=== PATIENT | female | born 1980 | race Caucasian/White ===

== ENCOUNTER 2021-01-09 21:37 | Emergency (ER) | payer SELFPAY ==
[~2021-01-09] VITALS: Ht 160 cm; Wt 72.6 kg
[2021-01-09 23:47] LABS: BASOPHILS # (AUTO) 0.1 (0.0-0.1); BASOPHILS % 0.5 % (0.0-1.0); EOSINOPHILS # (AUTO) 0.2 (0.0-0.4); EOSINOPHILS % 1.6 % (0.0-6.0); HEMATOCRIT 37.9 % (34.2-44.1); HEMOGLOBIN 12.9 g/dL (12.0-16.0); LYMPHOCYTES # (AUTO) 3.6 (1.0-3.2); LYMPHOCYTES % 33.2 % (18.0-39.1); MEAN CORPUSCULAR HEMOGLOBIN 31.9 pg (28-32); MEAN CORPUSCULAR VOLUME 93.8 fL (81-99); MONOCYTES # (AUTO) 0.7 (0.2-0.8); MONOCYTES % 6.4 % (4.4-11.3); NEUTROPHILS # (AUTO) 6.2 (2.1-6.9); NEUTROPHILS % 57.8 % (38.7-80.0); PLATELET COUNT 260 x10e3/uL (140-360); RED BLOOD COUNT 4.04 x10e6/uL (3.6-5.1)
[2021-01-10 00:05] LABS: ALANINE AMINOTRANSFERASE 16 IU/L (0-55); ALBUMIN 3.8 g/dL (3.5-5.0); ALBUMIN/GLOBULIN RATIO 1.1 (0.8-2.0); ALKALINE PHOSPHATASE 89 IU/L (40-150); ANION GAP 14.1 mmol/L (8-16); BLOOD UREA NITROGEN 10 mg/dL (7-26); BUN/CREATININE RATIO 13 (6-25); CALCIUM 9.2 mg/dL (8.4-10.2); CARBON DIOXIDE 23 mmol/L (22-29); CHLORIDE 105 mmol/L (98-107); EST GLOMERULAR FILTRATION RATE > 60 ML/MIN (60-); GLUCOSE 78 mg/dL (74-118); POTASSIUM 4.1 mmol/L (3.5-5.1); SODIUM 138 mmol/L (136-145)
[2021-01-10] MEDS ORDERED: IOPAMIDOL 370 MG/ML 200 ML INFUS..BTL INJ ONE (01:50)
[2021-01-10] MEDS ORDERED: SODIUM CHLORIDE 0.9% 50ML 50 ML ONE (01:50)
== END 2021-01-10 02:05 | disposition home or self-care (01) ==
LOC: ER 22:46
DX: R59.1 Generalized enlarged lymph nodes (principal)
CPT/HCPCS: 36415; 70491; 80053; 83518; 84702; 85025; 86308; 87070; 99284; Q9967